=== PATIENT | female | born 1995 | race African-American/Black ===

== ENCOUNTER 2022-11-12 16:04 | Inpatient (IN) ==
[2022-11-12] MEDS ORDERED: METHYLERGONOVINE 0.2 MG/1 ML AMP IM PRN (16:13)
[2022-11-12] MEDS ORDERED: ONDANSETRON 4 MG/2 ML VIAL IV PRN (16:13)
[2022-11-12] MEDS ORDERED: MEPERIDINE 50 MG/1 ML VIAL IV PRN (16:13)
[2022-11-12] MEDS ORDERED: BUTORPHANOL 1 MG/ML VIAL IV PRN (16:13)
[2022-11-12] MEDS ORDERED: BUTORPHANOL 2 MG/ML VIAL IV PRN (16:13)
[2022-11-12] MEDS ORDERED: OXYTOCIN/LR 20 UNIT/1,000 ML BAG IV ONE (16:13)
[2022-11-12] MEDS ORDERED: miSOPROStoL 200 MCG TABLET RECTAL PRN (16:13)
[2022-11-12] MEDS ORDERED: CARBOPROST TROMETHAMINE 250 MCG/ML AMP IM PRN (16:13)
[2022-11-12] MEDS ORDERED: MEPERIDINE 25 MG/1 ML VIAL IV PRN (16:13)
[2022-11-12] MEDS ORDERED: TRANEXAMIC ACID 1,000 MG in SODIUM CHLORIDE 0.9% 100 ML IV PRN (16:13)
[2022-11-12] MEDS: LACTATED RINGERS 1,000 ML IV SCH (16:59)
[2022-11-12 17:11] LABS: Basophils % 0.3 % (0.0-0.8); Eosinophils # 0.1 10*3/uL (0.0-0.87); Eosinophils % 1.7 % (0.00-10.9); Hematocrit 33.3 VOL% (35.7-47.0); Hemoglobin 11.1 GM/DL (12.0-16.0); Immature Granulocytes % 0.7 %; Immature Granulocytes Absolute 0.05 #; Lymphocytes # 1.9 10*3/uL (1.4-4.0); Lymphocytes % 27.1 % (21.3-54.2); Mean Corpuscular HGB Conc 33.3 GM/DL (32-36); Mean Corpuscular Volume 84.5 FL (87-102); Monocytes # 0.5 10*3/uL (0.11-0.8); Monocytes % 7.9 % (1.7-12.7); Neutrophils % 62.3 % (38.7-73.9); Platelet Count 200 T/CUMM (130-400); Red Blood Count 3.94 MC/CUMM (3.8-5.5); Red Cell Distribution Width 13.8 % (9.3-17.3); White Blood Count 6.86 T/CUMM (4-12)
[2022-11-12 17:14] LABS: Protein,Urine Negative (Negative); Urine Appearance Clear (Clear); Urine Color Yellow (Yellow); Urine Specific Gravity 1.015 (1.001-1.035)
[2022-11-12 17:15] LABS: Bilirubin,Urine Negative (Negative); Blood, Urine Negative (Negative); Glucose,Urine (UA) Negative (Negative); Ketones,Urine Negative (Negative); Nitrite,Urine Negative (Negative); Urine Urobilinogen 0.2 eU/dL (<2.0)
[2022-11-12 17:17] LABS: Bacteria,Urine Occasional /HPF (Few); Mucus,Urine Occasional /LPF (Occasional); RBC,Urine 1 /HPF (0-4); Squamous Epithelial Cell,Urine Occasional /HPF (0-10)
[2022-11-12 17:40] LABS: Alanine Aminotransferase 22 U/L (13-56); Albumin 2.7 G/DL (3.4-5.0); Alkaline Phosphatase 108 U/L (45-117); Aspartate Amino Transferase 17 U/L (0-37); Bilirubin,Total < 0.39 MG/DL (0.20-1.00); Blood Urea Nitrogen 7 MG/DL (7-18); Calcium 8.9 MG/DL (8.5-10.1); Carbon Dioxide 18 MMOL/L (21-32); Chloride 114 MMOL/L (98-107); Glucose 100 MG/DL (74-106); Osmolality,Calculated 274.5 MOS/KG (273-304); Potassium 3.4 MMOL/L (3.5-5.1); Sodium 139 MMOL/L (136-145); Total Protein 7.3 G/DL (6.4-8.2)
[2022-11-12] MEDS ORDERED: ACETAMINOPHEN 500 MG TABLET PO ONE (22:30)
[2022-11-13] MEDS: LACTATED RINGERS 1,000 ML IV SCH ×2 (02:26→06:42)
[2022-11-13] MEDS ORDERED: OXYTOCIN/LR 20 UNIT/1,000 ML BAG IV SCH (06:00)
[2022-11-13] MEDS ORDERED: diphenhydrAMINE 50 MG/1 ML VIAL IV PRN ×2 (06:02)
[2022-11-13] MEDS ORDERED: LACTATED RINGERS 1,000 ML IV ONE (06:02)
[2022-11-13] MEDS ORDERED: PROMETHAZINE 25 MG/1 ML VIAL IM ONE (06:02)
[2022-11-13] MEDS ORDERED: NALOXONE 0.4 MG/ML VIAL IV PRN (06:02)
[2022-11-13] MEDS ORDERED: CITRIC ACID/SODIUM CITRATE 30 ML UDCUP PO ONE (06:02)
[2022-11-13] MEDS ORDERED: ONDANSETRON 4 MG/2 ML VIAL IV ONE (06:02)
[2022-11-13] MEDS ORDERED: hydrOXYzine HCL 25 MG/1 ML VIAL IM PRN (06:02)
[2022-11-13] MEDS ORDERED: FAMOTIDINE 20 MG/2 ML VIAL IV ONE (06:02)
[2022-11-13] MEDS ORDERED: ePHEDrine 50 MG/ML VIAL IV PRN ×2 (06:02)
[2022-11-13] MEDS ORDERED: fentaNYL 2 MCG/ROPIV 0.2% EPID 100 ML EPIDURAL SCH (06:30)
[2022-11-13 08:13] LABS: Bacteria,Urine Occasional /HPF (Few); Mucus,Urine Occasional /LPF (Occasional); RBC,Urine 1 /HPF (0-4); Squamous Epithelial Cell,Urine Occasional /HPF (0-10)
[2022-11-13 08:15] LABS: Glucose,Urine (UA) Negative (Negative); Ketones,Urine 15 mg/dL (Negative); Protein,Urine Negative (Negative); Urine Appearance Clear (Clear); Urine Color Yellow (Yellow); Urine pH 6.5 (4.5-8.0)
[2022-11-13 08:16] LABS: Bilirubin,Urine Negative (Negative); Blood, Urine Negative (Negative); Nitrite,Urine Negative (Negative); Urine Urobilinogen 0.2 eU/dL (<2.0)
[2022-11-13] MEDS ORDERED: METHYLERGONOVINE 0.2 MG/1 ML AMP ONE (08:57)
[2022-11-13] MEDS ORDERED: miSOPROStoL 200 MCG TABLET ONE (08:57)
[2022-11-13] MEDS ORDERED: SODIUM CHLORIDE 0.9% 0 ML IV ONE (08:57)
[2022-11-13] MEDS ORDERED: CARBOPROST TROMETHAMINE 250 MCG/ML AMP IM ONE (08:57)
[2022-11-13] MEDS ORDERED: TRANEXAMIC ACID 1,000 MG/10 ML VIAL ONE (08:57)
[2022-11-13 10:52] LABS: Cord Venous Blood HCO3 21.3 MMOL/L; Cord Venous Blood PCO2 43.8 MMHG; Cord Venous Blood PO2 27.2
[2022-11-13] MEDS ORDERED: DIPH/TET/ACEL PERT BOOSTER VACCINE 0.5 ML VIAL IM ONE (14:34)
[2022-11-13] MEDS ORDERED: IBUPROFEN 800 MG TABLET PO PRN (14:34)
[2022-11-13] MEDS ORDERED: OXYTOCIN/LR 20 UNIT/1,000 ML BAG IV ONE (14:34)
[2022-11-13] MEDS ORDERED: BENZOCAINE 20%/MENTHOL 0.5% SPRAY 56 GM CAN TOP PRN (14:34)
[2022-11-13] MEDS ORDERED: MEASLES/MUMPS/RUBELLA VACCINE 0.5 ML VIAL SUBCUT ONE (14:34)
[2022-11-13] MEDS ORDERED: ACETAMINOPHEN 325 MG TABLET PO PRN (14:34)
[2022-11-13] MEDS ORDERED: RHO(D) IMMUNE GLOBULIN 300 MCG SYRINGE IM ONE (14:34)
[2022-11-13] MEDS ORDERED: WITCH HAZEL PADS 100/JAR TOP PRN (14:34)
[2022-11-13] MEDS ORDERED: HYDROCORTISONE 2.5% RECTAL CREAM 30 GM TUBE TOP PRN (14:34)
[2022-11-13] MEDS ORDERED: LANOLIN 50% CREAM 0.3 OZ TUBE TOP PRN (14:34)
[2022-11-13] MEDS ORDERED: oxyCODONE/ACETAMINOPHEN 5-325 MG TABLET PO PRN ×2 (14:34)
[2022-11-13] MEDS ORDERED: BISACODYL 10 MG SUPP RECTAL PRN (14:34)
[2022-11-14] MEDS: POTASSIUM CHLORIDE 20 MEQ TABLET PO PRN ×3 (00:45→04:45)
[2022-11-14 05:48] LABS: Basophils % 0.3 % (0.0-0.8); Eosinophils # 0.1 10*3/uL (0.0-0.87); Eosinophils % 0.8 % (0.00-10.9); Hematocrit 33.9 VOL% (35.7-47.0); Hemoglobin 10.9 GM/DL (12.0-16.0); Immature Granulocytes % 0.7 %; Immature Granulocytes Absolute 0.08 #; Lymphocytes # 1.9 10*3/uL (1.4-4.0); Lymphocytes % 15.9 % (21.3-54.2); Mean Corpuscular HGB Conc 32.2 GM/DL (32-36); Mean Corpuscular Volume 85.2 FL (87-102); Mean Platelet Volume 10.9 FL (9.6-12.0); Monocytes # 1.1 10*3/uL (0.11-0.8); Monocytes % 8.7 % (1.7-12.7); Neutrophils % 73.6 % (38.7-73.9); Platelet Count 188 T/CUMM (130-400); Red Blood Count 3.98 MC/CUMM (3.8-5.5); White Blood Count 12.15 T/CUMM (4-12)
[2022-11-14] MEDS: DOCUSATE SODIUM 100 MG CAPSULE PO SCH ×2 (11:00→21:07)
[2022-11-15 08:12] VITALS: BP 117/80
[2022-11-15] MEDS: DOCUSATE SODIUM 100 MG CAPSULE PO SCH (08:36)
== END 2022-11-15 13:10 | disposition home or self-care (01) | DRG 807 ==
LOC: N.LDOUT 16:04 → N.LD 16:05 → N.OB 11-13 14:32
PROVIDERS: ADMIT Obstetrics & Gynecology; ATTEND Obstetrics & Gynecology